=== PATIENT | female | born 2005 | race Caucasian/White ===

== ENCOUNTER 2024-07-28 19:15 | Emergency (ER) | payer BC ==
[2024-07-28 20:33] LABS: BASOPHILS PERCENT AUTO 0.3 % (0.0-1.0); EOSINOPHILS ABSOLUTE AUTO 0.2 K/mm3 (0.0-0.7); EOSINOPHILS PERCENT AUTO 2.7 % (0.0-5.0); HEMATOCRIT 42.2 % (37.0-47.0); HEMOGLOBIN 14.2 gm/dl (12.0-16.0); IMMATURE GRAN ABSOLUTE AUTO 0.02 K/mm3 (0.00-0.05); IMMATURE GRAN PERCENT AUTO 0.3 % (0.0-0.4); LYMPHOCYTES ABSOLUTE AUTO 1.8 K/mm3 (2.0-8.8); LYMPHOCYTES PERCENT AUTO 29.3 % (50.0-65.0); MEAN CORPUSCULAR HEMOGLOBIN 31.5 pg (28.0-32.0); MEAN CORPUSCULAR HGB CONC 33.6 g/dl (32.0-36.0); MEAN CORPUSCULAR VOLUME 93.6 fl (83.0-99.0); MEAN PLATELET VOLUME 10.5 fl (9.4-12.3); MONOCYTES ABSOLUTE AUTO 0.5 K/mm3 (0.1-1.4); MONOCYTES PERCENT AUTO 8.4 % (2.0-10.0); NEUTROPHILS ABSOLUTE AUTO 3.7 K/mm3 (1.5-8.5); PLATELET COUNT,PLT 169 K/mm3 (150-400); RED BLOOD CELL COUNT 4.51 M/mm3 (4.10-5.30); WHITE BLOOD CELL COUNT,WBC 6.21 K/mm3 (4.5-13.5)
[2024-07-28 20:53] LABS: INR 1.03; PROTHROMBIN TIME 10.9 SECONDS (9.7-12.0)
[2024-07-28 20:55] LABS: PTT,PARTIAL THROMBOPLSTIN TIME 27.3 SECONDS (21.7-31.4)
[2024-07-28] MEDS: Lactated Ringers 1,000 ML IV ONE (20:56)
[2024-07-28 20:57] LABS: D-DIMER QUANTITATIVE < 0.19 mg/L (0.19-0.50)
[2024-07-28] MEDS: Ondansetron 4 MG/2 ML SDV IVPUSH ONE (20:57)
[2024-07-28] MEDS: Ketorolac 30 MG/ML SDV IVPUSH ONE (20:57)
[2024-07-28 21:05] LABS: A/G RATIO 1.1 (1-2); BILIRUBIN TOTAL 0.6 mg/dL (0.2-1.0); CALCIUM 9.2 mg/dL (8.5-10.1); CREATININE 1.2 mg/dL (0.55-1.02); EST CRCL DRUG DOSING (CG) 73.33 mL/min; MAGNESIUM 2.3 mg/dL (1.8-2.4); PROTEIN TOTAL,TP 7.5 g/dl (6.4-8.2)
== END 2024-07-28 22:29 | disposition home or self-care (01) ==
LOC: JD.ED 19:15
DX: R07.89 Other chest pain (principal)
CPT/HCPCS: 36415; 71045; 80053; 83735; 83880; 84484; 85025; 85379; 85610; 85730; 93005; 96361; 96374; 96375; 99285; J1885; J2405; J7120; 93010; 99284

== ENCOUNTER 2024-09-06 09:22 | Emergency (ER) | payer BC ==
[2024-09-06 10:31] LABS: BASOPHILS PERCENT AUTO 0.5 % (0.0-1.0); EOSINOPHILS ABSOLUTE AUTO 0.3 K/mm3 (0.0-0.4); HEMATOCRIT 41.3 % (37.0-47.0); HEMOGLOBIN 13.5 gm/dl (12.0-16.0); IMMATURE GRAN ABSOLUTE AUTO 0.02 K/mm3 (0.00-0.05); IMMATURE GRAN PERCENT AUTO 0.4 % (0.0-0.4); LYMPHOCYTES ABSOLUTE AUTO 1.4 K/mm3 (1.0-4.8); MEAN CORPUSCULAR HEMOGLOBIN 31.6 pg (28.0-32.0); MEAN CORPUSCULAR HGB CONC 32.7 g/dl (32.0-36.0); MEAN PLATELET VOLUME 10.5 fl (9.4-12.3); MONOCYTES ABSOLUTE AUTO 0.4 K/mm3 (0.0-0.8); MONOCYTES PERCENT AUTO 7.5 % (0.0-8.0); NEUTROPHILS ABSOLUTE AUTO 3.3 K/mm3 (1.8-7.7); NEUTROPHILS PERCENT AUTO 59.6 % (41.0-71.0); PLATELET COUNT,PLT 174 K/mm3 (150-400); RED BLOOD CELL COUNT 4.27 M/mm3 (4.10-5.30); WHITE BLOOD CELL COUNT,WBC 5.47 K/mm3 (3.9-11.3)
[2024-09-06 10:32] LABS: MEAN CORPUSCULAR VOLUME 96.7 fl (83.0-99.0)
[2024-09-06 10:42] LABS: APPEARANCE,URINE CLEAR (Clear); BILIRUBIN,URINE NEGATIVE (Negative); COLOR,URINE YELLOW (Yellow); GLUCOSE,URINE NEGATIVE (Negative); KETONES,URINE NEGATIVE (Negative); LEUKOCYTE ESTERASE,URINE NEGATIVE (Negative); NITRITE,URINE NEGATIVE (Negative); OCCULT BLOOD,URINE NEGATIVE (Negative); PROTEIN,URINE NEGATIVE (Negative); UROBILINOGEN,URINE 0.2 (0.2-1.0)
[2024-09-06 10:49] LABS: AMPHETAMINES SCREEN, URINE NEGATIVE (CUTOFF=500); BARBITURATE SCREEN,URINE NEGATIVE (CUTOFF=200); BENZODIAZEPINES SCREEN,URINE NEGATIVE (CUTOFF=150); BUPRENORPHINE SCREEN,URINE NEGATIVE (CUTOFF=10); METHADONE SCREEN, URINE NEGATIVE (CUTOFF=200); METHAMPHETAMINES SCREEN, URINE NEGATIVE (CUTOFF=500); OXYCODONE SCREEN,URINE NEGATIVE (CUT0FF=100); THC SCREEN,URINE 20 NG/ML NEGATIVE (CUTOFF=50)
[2024-09-06 10:54] LABS: PROTHROMBIN TIME 10.6 SECONDS (9.7-12.0)
[2024-09-06 10:55] LABS: PTT,PARTIAL THROMBOPLSTIN TIME 26.4 SECONDS (21.7-31.4)
[2024-09-06 10:57] LABS: D-DIMER QUANTITATIVE < 0.19 mg/L (0.19-0.50)
[2024-09-06 11:08] LABS: A/G RATIO 1.1 (1-2); ALANINE AMINOTRANSFERASE,ALT 40 U/L (14-59); ALBUMIN 3.7 g/dl (3.4-5.0); ALKALINE PHOSPHATASE 76 U/L (46-116); ASPARTATE AMNIOTRANSFERASE,AST 22 U/L (15-37); BILIRUBIN TOTAL 0.5 mg/dL (0.2-1.0); BLOOD UREA NITROGEN,BUN 10 mg/dL (7-18); BUN/CREATININE RATIO 11.1 (14-18); CARBON DIOXIDE,CO2 28 mEq/L (21-32); CHLORIDE,CL 107 mEq/L (98-107); CREATININE 0.9 mg/dL (0.55-1.02); EST CRCL DRUG DOSING (CG) 96.96 mL/min; ESTIMATED GFR 94 mL/min (>60); GLUCOSE RANDOM 78 mg/dL (70-99); MAGNESIUM 2.2 mg/dL (1.8-2.4); SODIUM,NA 142 mEq/L (136-145)
[2024-09-06 11:12] LABS: TROPONIN I HIGH SENSITIVITY < 4 pg/mL (<=51)
[2024-09-06] MEDS: Sodium Chloride 0.9% 1,000 ML IV SCH (11:41)
== END 2024-09-06 13:38 | disposition home or self-care (01) ==
LOC: JD.ED 09:22
DX: I49.8 Other specified cardiac arrhythmias (principal)
CPT/HCPCS: 36415; 70450; 70450-26; 71045; 71045-26; 80053; 80306; 81003; 81025; 83735; 83880; 84484; 85025; 85379; 85610; 85730; 93005; 93010; 93246; 94762; 96360; 99284; 99285-25; J7030

== ENCOUNTER 2025-03-29 16:45 | Emergency (ER) | payer BC ==
[2025-03-29 18:11] LABS: BASOPHILS ABSOLUTE AUTO 0.0 K/mm3 (0.0-0.2); BASOPHILS PERCENT AUTO 0.5 % (0.0-1.0); EOSINOPHILS ABSOLUTE AUTO 0.2 K/mm3 (0.0-0.4); EOSINOPHILS PERCENT AUTO 3.5 % (0.0-6.0); IMMATURE GRAN ABSOLUTE AUTO 0.01 K/mm3 (0.00-0.05); IMMATURE GRAN PERCENT AUTO 0.2 % (0.0-0.4); LYMPHOCYTES ABSOLUTE AUTO 1.8 K/mm3 (1.0-4.8); LYMPHOCYTES PERCENT AUTO 30.1 % (24.0-44.0); MEAN PLATELET VOLUME 11.1 fl (9.4-12.3); MONOCYTES ABSOLUTE AUTO 0.5 K/mm3 (0.0-0.8); MONOCYTES PERCENT AUTO 8.0 % (0.0-8.0); NEUTROPHILS ABSOLUTE AUTO 3.5 K/mm3 (1.8-7.7); NEUTROPHILS PERCENT AUTO 57.7 % (41.0-71.0); NRBC ABSOLUTE 0.00 (0.00-0.02); NRBC PERCENT 0.0 % (0.0-0.2); PLATELET COUNT,PLT 197 K/mm3 (150-400); RED BLOOD CELL COUNT 4.70 M/mm3 (4.10-5.30); WHITE BLOOD CELL COUNT,WBC 6.01 K/mm3 (3.9-11.3)
== END 2025-03-29 19:55 | disposition home or self-care (01) ==
LOC: JD.ED 16:45
DX: R10.22 Pelvic and perineal pain left side (principal); J45.909 Unspecified asthma, uncomplicated
CPT/HCPCS: 36415; 76817; 84702; 85025; 86900; 86901; 99284; A9270; 99283